=== PATIENT | male | born 1945 | race Caucasian/White ===

== ENCOUNTER → 2020-09-02 | Outpatient (CLI) | payer MEDICARE ==
[~2020-09-02] VITALS: Ht 177.8 cm; Wt 84.4 kg
== END ==
LOC: OPSV 07:54
DX: M06.9 Rheumatoid arthritis, unspecified (principal)
CPT/HCPCS: 96365; 96366; 96375; J1720; J7050; Q5103

== ENCOUNTER → 2020-09-16 | Outpatient (CLI) | payer MEDICARE ==
[~2020-09-16] VITALS: Ht 177.8 cm; Wt 84.4 kg
== END ==
LOC: OPSV 08:00
DX: M06.9 Rheumatoid arthritis, unspecified (principal)
CPT/HCPCS: 96365; 96366; 96375; J1720; J7050; Q5103

== ENCOUNTER → 2020-11-08 | Outpatient (CLI) | payer MEDICARE ==
[2020-11-08 16:28] LABS: HEMOGLOBIN 12.5 gm/dl (14.0-17.5); RED BLOOD COUNT 3.52 M/UL (4.20-5.50)
[2020-11-08 16:42] LABS: WHITE BLOOD COUNT 9.5 K/UL (4.5-11.0)
[2020-11-11 15:10] LABS: ATYPICAL PANCA <1:20 titer (Neg:<1:20); CYTOPLASMIC (C-ANCA) <1:20 titer (Neg:<1:20); PERINUCLEAR (P-ANCA) <1:20 titer (Neg:<1:20)
== END ==
LOC: RAD 13:54
PROVIDERS: Internal Medicine
DX: Z51.81 Encounter for therapeutic drug level monitoring (principal); Z79.899 Other long term (current) drug therapy; M81.0 Age-related osteoporosis without current pathological fracture; M06.09 Rheumatoid arthritis without rheumatoid factor, multiple sites; R50.9 Fever, unspecified; R06.00 Dyspnea, unspecified; R91.8 Other nonspecific abnormal finding of lung field
CPT/HCPCS: 71046; 80053; 81001; 82570; 84156; 85025; 85652; 86140; 86256; 87040